=== PATIENT | male | born 1965 | race Caucasian/White ===

== ENCOUNTER 2025-05-12 21:29 | Emergency (ER) | payer OTHER ==
[~2025-05-12] VITALS: Ht 185.4 cm; Wt 73.0 kg
[2025-05-12 22:04] LABS: BASOPHILS % 0.4 % (0.0-2.0); EOSINOPHILS % 2.9 % (0.0-5.0); HEMATOCRIT. 34.3 % (42.0-52.0); HEMOGLOBIN. 11.3 g/dL (14.0-18.0); LYMPHOCYTES % 11.3 % (20.0-50.0); MEAN PLATELET VOLUME 6.6 fl (7.4-10.4); MONOCYTES % 10.9 % (2.0-8.0); NEUTROPHILS % 74.5 % (40.0-76.0); PLATELET 426 x1000/uL (130-400); RED BLOOD CELL COUNT 3.57 mill/uL (4.7-6.1); RED CELL DISTRIBUTION WIDTH 14.2 % (11.6-14.6)
[2025-05-12 22:18] LABS: CREATININE 0.7 mg/dL (0.6-1.3); ETHANOL BLOOD 14 mg/dL (<10); UREA NITROGEN BLOOD 8 mg/dL (9-23)
[2025-05-12 22:20] LABS: ASPARTATE AMINOTRANSFERASE 10 IU/L (<34); BILIRUBIN DIRECT < 0.1 mg/dL (<=3.0); BILIRUBIN TOTAL 0.2 mg/dL (0.1-1.0); PROTEIN TOTAL 6.5 g/dL (6.0-8.3)
[2025-05-12] MEDS: ACETAMINOPHEN 1000MG/100ML 100 ML IV ONE (23:12)
[2025-05-12] MEDS: SODIUM CHLORIDE 0.9% 1,000 ML IV ONE (23:12)
[2025-05-12] MEDS: ONDANSETRON HCL 4MG/2ML INJ IV ONE (23:12)
[2025-05-12 23:32] VITALS: PULSE 79; RESP 20; O2SAT 99
[2025-05-12] MEDS: ALBUTEROL (0.083%) 2.5MG/3ML NEB HHN ONE (23:32)
[2025-05-13] MEDS: IOHEXOL-300 100 ML BOTTLE ONE
[2025-05-13 00:49] LABS: CLARITY URINE CLEAR (CLEAR); COLOR URINE YELLOW (YELLOW); GLUCOSE URINE NEGATIVE (NEGATIVE); KETONES URINE NEGATIVE (NEGATIVE); LEUKOCYTE ESTERASE URINE NEGATIVE (NEGATIVE); NITRITE URINE NEGATIVE (NEGATIVE); OCCULT BLOOD URINE NEGATIVE (NEGATIVE); PH URINE 7.0 (4.5-8.0); PROTEIN URINE NEGATIVE (NEGATIVE); SPECIFIC GRAVITY URINE 1.022 (1.005-1.030); UROBILINOGEN URINE 0.2 E.U./dL (0.2-1.0)
[2025-05-13 01:03] LABS: *AMPHETAMINES SCREEN URINE NEGATIVE (NEGATIVE); *BARBITURATES SCREEN URINE NEGATIVE (NEGATIVE); *BENZODIAZEPINES SCREEN URINE NEGATIVE (NEGATIVE); *COCAINE SCREEN URINE NEGATIVE (NEGATIVE); CANNABINOID URINE SCREEN PRESUMPTIVE POSITIVE (NEGATIVE); ECSTASY MDMA SCREEN URINE NEGATIVE (NEGATIVE); METHADONE URINE SCREEN NEGATIVE (NEGATIVE); OPIATES URINE SCREEN PRESUMPTIVE POSITIVE (NEGATIVE); PHENCYCLIDINE URINE SCREEN NEGATIVE (NEGATIVE)
[2025-05-13 04:00] VITALS: TEMP 37.2
[2025-05-13] MEDS ORDERED: ACET-2708 MT (05:21)
[2025-05-13 05:30] VITALS: BP 128/73; PULSE 69; RESP 16; O2SAT 95
== END 2025-05-13 05:51 | disposition home or self-care (01) ==
LOC: ER 21:29 → CMPBEDREQ 05-13 07:34
DX: G89.18 Other acute postprocedural pain (principal); J44.89 Other specified chronic obstructive pulmonary disease; Z98.890 Other specified postprocedural states; Z79.899 Other long term (current) drug therapy; Z20.822 Contact with and (suspected) exposure to COVID-19
CPT/HCPCS: 80076; 80048; 80320; 83690; 85025; 36415; 71045; 74177; 94640; 96374; 96375; 99285; 87426; 80305; 81003; Q9967; J2405; Z7610 ×2; J7030; 94070; 94664; 98960; G0480; J0131